=== PATIENT | female | born 1940 | race Caucasian/White ===

== ENCOUNTER 2016-08-09 22:19 | Emergency (ER) | payer MEDICARE, MEDICAID ==
[~2016-08-09] VITALS: Ht 162.6 cm; Wt 117.3 kg
[~2016-08-09 22:19] MED LIST: ACET325T38 PO; AGM500T PO; ALBU8.5H2 IH; ALBU8CC IH; APIX2.5T2 PO; ATOR20TA PO; BISO10TA; CALC300T10 PO; CEPH500C PO; CHLO118L TP; CLN.1TRX PO; CMBV14CC IH; DEXT50DI9 IV; DOCU100C8 PO; DOXY100C42 PO; DPH25C PO; EUCERIN TOP; FERR325T17; FLUC100T PO; FLX20C PO; FRSM20T PO; FRSM40T PO; FURO-124 PO; GFN600TCR PO; GUAI100L13 PO; HC2.5C30 PR; HYDR-2651 PO; HYDR-3702 PO; INSASP1U SQ; INSU100C7 SQ; INSU100V2 SC; INSU100V8 SC; LEVO500T16 PO; LISI5TAB14; LSNP10T PO; MAG30ORA PO; MAG360OR57 PO; MAGN400O7 PO; MINE120C TOP; NYST30OI6 TOP; ONDA4TAB8 PO; ONDAN4ODT PO; POLY17PO2 PO; POTA-57 PO; PRED-501 PO; PRED20TA PO; PROP60TA17 PO; SIMV40TA2 PO; SPIR1POW3; SPRN25T PO; TERBIN250T PO; TRIAMCIN TOP; TRIM100T PO; VARE1TAB22 PO; WARF1TAB; [UNRECOGNIZED DRUG - CODE] IM; [UNRECOGNIZED DRUG - CODE] TOP; novolog
[2016-08-09] MEDS ORDERED: ONDANSETRON 2 MG/ML (Z0FRAN) 2 ML VIAL IV ONE (23:45)
[2016-08-10 00:51] LABS: BASOPHILS % (AUTO) 0 % (0-2); EOSINOPHILS # (AUTO) 0.5 10^3uL; EOSINOPHILS % (AUTO) 6 % (0-4); LYMPHOCYTES # (AUTO) 0.6 X10^3; MEAN CORPUSCULAR HGB CONC 32.2 g/dL (31.0-37.0); MEAN CORPUSCULAR VOLUME 90 FL (80-100); MEAN PLATELET VOLUME 11.8 FL (6.0-9.5); MONOCYTES # (AUTO) 0.6 X10^3; MONOCYTES % (AUTO) 8 % (3-11); NEUTROPHILS # (AUTO) 6.3 X10^3; NEUTROPHILS % (AUTO) 78 % (51-67); PLATELET COUNT 96 10^3uL (150-450); WHITE BLOOD COUNT 8.03 10^3uL (4.0-11.0)
[2016-08-10 01:11] LABS: ALBUMIN 3.7 g/dL (3.4-5.0); ANION GAP 13.6 MEQ/L (3-15); TOTAL PROTEIN 7.7 g/dL (6.4-8.5)
[2016-08-10 02:12] LABS: BILIRUBIN,URINE Negative (Negative); CLARITY,URINE Clear; COLOR,URINE Yellow; GLUCOSE, URINE (UA) Negative (Negative); LEUKOCYTE ESTERASE ,URINE Negative (Negative)
[2016-08-10] MEDS ORDERED: CEPH500C PO (02:14)
[2016-08-10] MEDS ORDERED: DEXT1DRO8 OP (02:14)
[2016-08-10] MEDS ORDERED: HYDROmorphone 1 MG/ML (DILAUDID) SYRINGE IV ONE (02:15)
[2016-08-10 02:17] LABS: URINE CENTRIFUGED VOLUME 12 mL
[2016-08-10] MEDS ORDERED: TR1C15 TOP (02:19)
[2016-08-10] MEDS ORDERED: INSASP1U SQ (02:19)
[2016-08-10] MEDS ORDERED: ASCO500T6 PO (02:19)
[2016-08-10 02:24] LABS: INFLUENZA VIRUS TYPE A ANTIBOD Negative (NEGATIVE); INFLUENZA VIRUS TYPE B ANTIBOD Negative (NEGATIVE)
[2016-08-10] MEDS ORDERED: ONDAN4ODT PO (02:35)
[2016-08-10] MEDS ORDERED: ED- ONDANSETRON ODT 4 MG (ZOFRAN) 4 TABLETS/BTL PO ONE (02:40)
[2016-08-10 03:05] VITALS: BP 158/69
--- NOTE | 2016-08-10 08:14 | Diagnostic Imaging Report ---
INDICATION: Vomiting. Abdominal series is performed in the routine fashion with a frontal chest radiograph and supine and upright abdominal films. Frontal chest view shows cardiomegaly with no acute infiltrate. There is no pneumothorax or pleural fluid. There is no free intraperitoneal air. The abdominal bowel gas pattern is nonspecific with moderate stool throughout the colon. IMPRESSION: Nonspecific bowel gas pattern with no sign of obstruction or ileus. Moderate stool throughout the colon. No acute process in the chest. Cardiomegaly. Dictated by: Dictated on workstation # [id number]
== END 2016-08-10 02:50 | disposition home or self-care (01) ==
LOC: ED 22:21
DX: R11.2 Nausea with vomiting, unspecified (principal); D69.6 Thrombocytopenia, unspecified; I87.2 Venous insufficiency (chronic) (peripheral); F17.210 Nicotine dependence, cigarettes, uncomplicated
CPT/HCPCS: 36415; 51701; 74022; 80053; 81003; 81015; 83690; 85025; 86140; 87400; 96361; 96374; 99284; A9270; J2405; J7030; 87502; 99283